=== PATIENT | male | born 1975 | race Caucasian/White ===

== ENCOUNTER 2019-09-18 12:29 | Emergency (ER) | payer MEDICAID ==
[~2019-09-18] VITALS: Ht 167.6 cm; Wt 71.7 kg
[2019-09-18 12:35] VITALS: BP 134/101
--- NOTE | 2019-09-18 13:11 | NUR ---
Patient discharged to home in stable condition. Written and verbal after care instructions given. Patient verbalizes understanding of instruction.
== END 2019-09-18 13:13 | disposition home or self-care (01) ==
LOC: ER 12:33
DX: H65.02 Acute serous otitis media, left ear (principal)